=== PATIENT | female | born 1990 | race Caucasian/White ===

== ENCOUNTER → 2018-11-07 | Outpatient (CLI) | payer OTHER, SELFPAY ==
[2018-11-07 12:16] LABS: D-Dimer Quantitative (DVT/PE) 0.41 FEU/ug/m (0.27-0.49)
== END | disposition home or self-care (01) ==
PROVIDERS: Family Provider Family Medicine; PCP Family Medicine; Visit Provider Family Medicine
DX: R07.9 Chest pain, unspecified (principal); R00.2 Palpitations
CPT/HCPCS: 85379; 93225; 93226

== ENCOUNTER 2019-12-01 21:11 | Inpatient (IN) | payer OTHER, SELFPAY ==
[2019-12-01 20:27] VITALS: BMI 37.5
[2019-12-01 20:47] VITALS: BP 141/86; PULSE 88; TEMP 36.3; O2SAT 98
[2019-12-01 20:48] VITALS: PULSE 91; O2SAT 98
[2019-12-01 21:10] LABS: ROM Internal Control Test YES-OK TO RESULT pt. (Internal QC)
[2019-12-01 21:11] LABS: ROM Patient Test POSITIVE (Negative)
[2019-12-01] MEDS: Lactated Ringers 1,000 ML 50 ML IV (21:48)
[2019-12-01] MEDS: Betamethasone/Betamethasone 30 MG/5 ML Vial 12 MG IM (22:01)
[2019-12-01 22:11] LABS: Absolute Lymphocyte Count 1.51 X10^3/uL (0.83-4.51); Absolute Neutrophil Count 5.7 X10^3/uL (2.0-7.7); Basophil# 0.03 X10^3/uL; Basophil% 0.4 % (0-1); Eosinophil# 0.09 X10^3/uL; Eosinophils% 1.1 % (0-5); Hematocrit 32.6 % (37-47); Hemoglobin 10.7 g/dL (12.0-15.0); Lymphocyte # 1.51 X10^3/ul (4.0); Lymphocyte % 18.8 % (19-41); Mean Corp Hgb Conc 32.8 g/dL (32-36); Mean Corpuscular Hgb 28.9 pg (27.0-32.0); Mean Corpuscular Volume 88.1 fL (81-99); Mean Platelet Vol. 9.8 fl (6.2-12.0); Monocyte# 0.63 X10^3/uL; Monocyte% 7.8 % (0-10); NRBC Flagged by Analyzer 0 % (0-5); Neutrophil # 5.68 X10^3/uL (2.7-7.7); Neutrophil % 70.8 % (47-70); Platelet Count 254 K/mm3 (150-450); RBC Distribution Width CV 13.1 % (11.6-14.6)
[2019-12-01 22:48] VITALS: BP 139/82; PULSE 82; PULSE 90; TEMP 36.8; O2SAT 100
[2019-12-01 23:13] LABS: Group B Strep DNA By PCR Negative (Negative); Internal Control PASS; Probe Check PASS; Specimen Processing Control PASS
[2019-12-01 23:46] VITALS: BP 120/76; PULSE 74; PULSE 85; TEMP 36.4; O2SAT 100
[2019-12-02] VITALS (20 sets, daily range): BP systolic 118–161; BP diastolic 60–96; PULSE 70–106; RESP 16; TEMP 36.1–36.9; O2SAT 97–100
[2019-12-02] MEDS: Acetaminophen 325 MG Tablet PO (00:08)
[2019-12-02] MEDS: 0.9% Saline Lock 10 ML Syringe IV (00:10)
[2019-12-02] MEDS: Oxytocin 30 units/NS 500 ml 30 UNITS/500 ML IV.SOLN IV (00:13)
--- NOTE | 2019-12-02 03:43 | PCM.HP.OB ---
History Date of Admission: 12/01/19 Final CLOVIS: 12/28/19 Gestational age: 36 Weeks and 1 Days History of this : This is a 28 year-old, G 4, P 0, at 36 1/7 weeks gestational age who had her cervical cerclage removed today is admitted for spontaneous rupture membranes. She arrived to labor and delivery the leaking of fluid. Her ROM plus test was found to be positive. She was having some irregular contractions. is complicated today by history of infertility, history of recurrent first trimester miscarriages, she had a short cervix in the second trimester at 19 weeks and had a cervical cerclage placed. That cerclage was removed without incident in the office today. She denies any gross vaginal bleeding. Regnancy is also complicated to date by nausea and vomiting in the first trimester, bleeding in the first trimester, and obesity of . BMI is 37. Allergies No Known Allergies Allergy (Verified 12/01/19 20:38) Home Medications: Home Medications Aspirin [Aspirin EC] 81 mg PO DAILY 12/01/19 Ferrous Sulfate 325 mg PO BID 12/01/19 Labetalol [Trandate] 100 mg PO BID 12/01/19 Vits [Prenatabs FA] 1 tab PO DAILY 12/01/19 Progesterone 200 mg RECTAL DAILY 12/01/19 Smoking Status: Former smoker Alcohol: None Number of Fetus(es): 1 NST - FHR Rate Baby A Baseline: normal Variability:: Moderate Accelerations:: 15 x 15 FHR Category:: Category I Uterine Activity:: irreg ctxs History Past Pregnancies: Past Pregnancies Delivery Date Name GA/ Weeks Outcome Route Wt Infant Sex Labor Length Anesthesia Delivery Location Provider FOB Expected Infant Delivery Method: Spontaneous Vaginal Review of Systems Constitutional: Denies: Chills, Fever Eyes: Denies: Blurred vision Cardiovascular: Denies: Chest Pain Respiratory: Denies: Cough Genitourinary: Denies: Dysuria Skin: Denies: Rash Neurological: Denies: Blurred vision Physical Exam Vitals: Vital Signs Temp Pulse BP Pulse Ox 97.5 F L 94 127/71 H 97 12/02/19 02:57 12/02/19 02:57 12/02/19 02:57 12/02/19 02:57 General: Alert, Cooperative, No apparent distress Cardiovascular: Regular rate Lungs: Normal air movement Abdomen: Soft, Non Tender, Non-Distended, Gravid Neurological: Cranial nerves II-XII grossly intact Assessment/Plan This is a 28 year-old, avid a 4 para 0 at 36-1/7 weeks gestation upon admission with premature rupture of membranes. Rapid group B strep is done. Was negative, group B strep prophylaxis is not indicated. Admit for expectant management for vaginal delivery. This is clinically adequate to expect vaginal delivery based on previous pelvic exams. Pitocin induction of labor. May have epidural as needed for pain control.
[2019-12-02] MEDS: Oxytocin 10 UNITS/ML Vial IM (08:13)
[2019-12-02] MEDS: Ketorolac 30 MG/ML Syringe IM (08:15)
[2019-12-02] MEDS: Oxytocin 30 units/NS 500 ml 30 UNITS/500 ML IV.SOLN 167 UNITS IV (09:00)
[2019-12-02] MEDS: Cefazolin 2 GM in 0.9% Normal Saline 100 ML IV (09:41)
--- NOTE | 2019-12-02 10:47 | OP.PCM_ITS ---
Report of Operation Date of Procedure: 12/02/19 Pre-Operative Diagnosis: Cervical & vaginal lacerations Post-Operative Diagnosis: Same Surgery/Procedure Performed:: Repair of cervical & vaginal lacerations Description of Surgical Findings:: Posterior cervical laceration. Also right sided vaginal lacerations near cervix. highway maintenance technician: Idania aCmp Type of Anesthesia:: Spinal Drains: straigh cath (75ml) Estimated Blood Loss (mL): 100ml Fluids Replaced: 400ml Description of Procedure: Patient counseled on R/B/A and decision made to proceed with cervical laceration (and additional vaginal laceration) repair under spinal anesthesia in the OR. Spinal anesthesia was placed once patient in the OR. She was placed in the dorsal lithotomy position, prepped & draped. Cervix was grasped with ring forceps and lalo clamps. Cervical laceration repaired with both running & interrupted 3-0 vicryl. Additional vaginal lacerations not repaired with 3-0 vicryl. Excellent hemostasis was noted of all lacerations. At end of procedure all instruments were removed from the vaginal cavity. Sponge, lap & needle counts were correct times 2. Vaginal sweep was performed. Patient tolerated the procedure well. - Complications None - Admit VTE Documentation VTE Present on Admission: No Vaginal Delivery Maternal Presentation: Spontaneous Rupture of Membranes Method of Induction: Pitocin Amniotic Membrane Rupture Type: Spontaneous at home Amniotic Fluid Description: Clear Final CLOVIS: 12/28/19 Gestational age: 36 Weeks and 2 Days Date of Procedure: 12/02/19 Pre-Operative Diagnosis: (1) PPROM Post-Operative Diagnosis: (1) PPROM (2) Cervical laceration Surgery/ Procedure Performed: Spontaneous Vaginal Delivery Type of Anesthesia: Local with 1% lidocaine Description of Procedure: Patient prepped & draped in stirrups when C/C/+2. She pushed to deliver the head. Shoulders and body easily followed. Infant placed on maternal abdomen where 3VC clamped and cut in delayed fashion. Placenta delivered with gentle traction. Good uterine tone obtained. Vaginal lacerations noted and repair begain with 3-0 vicryl and injecting lidocaine. Some increased bleeding noted again and cervix examined. Posterior cervical laceration noted and decision made to take patient to the OR for repair under spinal anesthesia. Presentation: ELSIE Placental Delivery Description: Expressed Placenta Disposition: [facility] Cord Vessel Description: 3 Vessels Cord Entanglement: None Estimated Blood Loss: 600ml A gender: Male - Harmon; weight 6-4 (1 minute): 9 (5 minute): 9 Episiotomy Description: None Laceration: Vaginal Extension/lac - See other operative note for repair information, Cervical Extension/lac Medications given after delivery: IV Pitocin - IM pitocin only as IV not working
[2019-12-02 18:23] LABS: Absolute Neutrophil Count 11.4 X10^3/uL (2.0-7.7); Basophil# 0.01 X10^3/uL; Basophil% 0.1 % (0-1); Hematocrit 29.4 % (37-47); Hemoglobin 9.8 g/dL (12.0-15.0); Lymphocyte % 8.6 % (19-41); Mean Corp Hgb Conc 33.3 g/dL (32-36); Mean Corpuscular Hgb 29.3 pg (27.0-32.0); Mean Platelet Vol. 10.1 fl (6.2-12.0); Monocyte# 1.23 X10^3/uL; Monocyte% 8.8 % (0-10); NRBC Flagged by Analyzer 0 % (0-5); Neutrophil # 11.41 X10^3/uL (2.7-7.7); Neutrophil % 81.4 % (47-70); Platelet Count 307 K/mm3 (150-450); RBC Distribution Width SD 41.5 fl (35.1-43.9); Red Blood Count 3.34 M/mm3 (4.2-5.4)
[2019-12-02] MEDS: Ibuprofen 600 MG Tablet PO (20:44)
[2019-12-02] MEDS: Acetaminophen 500 MG Tablet 1000 MG PO (22:33)
[2019-12-02] MEDS: Senna/Docusate Sodium 1 Tablet PO (22:34)
[2019-12-03 00:25] VITALS: BP 112/47; PULSE 83; RESP 14; TEMP 36.7; O2SAT 97
[2019-12-03] MEDS: oxyCODONE 5 MG Tablet PO (01:44)
[2019-12-03] MEDS: Ibuprofen 600 MG Tablet PO ×3 (03:23→15:54)
[2019-12-03 03:32] VITALS: BP 129/79; PULSE 71; RESP 16; TEMP 36.1; O2SAT 97
--- NOTE | 2019-12-03 07:24 | PCM.PN.OB ---
Subjective: Pain controlled - Physical Exam Vitals/I&O's: Vital Signs Temp Pulse Resp BP Pulse Ox 97 F L 71 16 129/79 H 97 12/03/19 03:32 12/03/19 03:32 12/03/19 03:32 12/03/19 03:32 12/03/19 03:32 Oxygen Delivery Method Room Air Weight: 232 lb 12.93 oz Body Mass Index (BMI) 37.5 Intake and Output for Last 24 Hours 12/01/19 12/02/19 12/03/19 23:59 23:59 23:59 Intake Total 18.33 / 18.33 2724.67 / 2724.67 Output Total 1150 / 1150 Balance 18.33 / 18.33 1574.67 / 1574.67 General: Alert, Oriented x3 Abdomen: Soft, Non Tender, Non-Distended - ff mid & below umb Extremities: No Calf Tenderness Laboratory Results 12/02/19 18:05: WBC 14.0 H, RBC 3.34 L, Hgb 9.8 L, Hct 29.4 L, MCV 88.0, MCH 29.3, MCHC 33.3, RDW Std Deviation 41.5, RDW Coeff of Jennifer 13.0, Plt Count 307, MPV 10.1, Immature Gran % (Auto) 1.100 H, Neut % (Auto) 81.4 H, Lymph % (Auto) 8.6 L, [place] % (Auto) 8.8, Eos % (Auto) 0.0, Baso % (Auto) 0.1, Absolute Neuts (auto) 11.4 H, Absolute Lymphs (auto) 1.20, Nucleated RBC % 0 Current Medications Acetaminophen (Tylenol) 1,000 mg PO Q8H PRN PRN PRN Reason: Pain Score 1-3/10 Last Admin: 12/02/19 22:33 Dose: 1,000 mg Documented by: Bisacodyl (Dulcolax) 10 mg RECTAL UD PRN PRN Reason: If no BM Dibucaine (Dibucaine) 1 applic TOPICAL TID PRN PRN; Protocol PRN Reason: Discomfort Hydrocortisone (Hytone) 1 applic TOPICAL TID PRN PRN; Protocol PRN Reason: Discomfort Ibuprofen (Motrin) 600 mg PO Q6H PRN PRN PRN Reason: Pain Score 1-3/10 Last Admin: 12/03/19 03:23 Dose: 600 mg Documented by: Methylergonovine Maleate (Methergine) 0.2 mg IM X1 PRN PRN Reason: Excess bleeding/uterine atony Ondansetron HCl (Zofran) 4 mg IV Q4H PRN PRN PRN Reason: Nausea Oxycodone HCl (Oxyir) 5 - 10 mg PO Q4H PRN PRN PRN Reason: Pain Score 4-10/10 Last Admin: 12/03/19 01:44 Dose: 5 mg Documented by: Multivit/Folic Acid/Iron (Prenatabs Fa) tablet PO DAILY JERE Prochlorperazine Edisylate (Compazine Iv) 10 mg IV Q6H PRN PRN PRN Reason: NAUSEA/VOMITING Senna/Docusate Sodium (Senokot-S, Kasandra-Colace) 1 - 2 tablet PO DAILY PRN PRN PRN Reason: Constipation Last Admin: 12/02/19 22:34 Dose: 1 tablet Documented by: Simethicone (Mylicon) 80 mg PO PCHS PRN PRN Reason: Indigestion/Stomach pain Sodium Chloride () 5 - 15 ml IV UD PRN PRN Reason: SALINE FLUSH Medical Necessity - Tobacco Use Smoking Status: Former smoker Assessment/Plan PPD#1 Heme - HDS, cbc reviewed Chtn - BP normal, off labetalol Routine care and plan for discharge tomorrow
[2019-12-03 07:45] VITALS: BP 106/56; PULSE 78; RESP 16; TEMP 36.3
[2019-12-03] MEDS: Prenatal Vits Tablet 1 TABLET PO (11:38)
[2019-12-03] MEDS: Acetaminophen 500 MG Tablet 1000 MG PO ×2 (11:39→19:44)
[2019-12-03] MEDS: Senna/Docusate Sodium 1 Tablet PO (11:42)
[2019-12-03 13:32] VITALS: BP 115/77; PULSE 75; RESP 16; TEMP 36.5
[2019-12-03 19:30] VITALS: BP 122/86; PULSE 86; RESP 16; TEMP 36.5
[2019-12-03] MEDS: Dibucaine 30 GM Tube 1 APPLIC TOPICAL (19:45)
[2019-12-04] MEDS: oxyCODONE 5 MG Tablet PO ×2 (01:08→08:28)
[2019-12-04 01:14] VITALS: BP 120/69; PULSE 77; RESP 16; TEMP 36.3; O2SAT 97
[2019-12-04] MEDS: Ibuprofen 600 MG Tablet PO (04:25)
[2019-12-04 08:00] VITALS: BP 137/90; PULSE 76; RESP 16; TEMP 36.6; O2SAT 98
--- NOTE | 2019-12-04 08:25 | PCM.PN.OB ---
Subjective: Patient seen at bedside. going well. Pain controlled with Motrin and Tylenol during the day and Oxy-ir at night. Ambulating in room and voiding without difficulty. Lochia decreasing. Desires discharge home today. - Physical Exam Vitals/I&O's: Vital Signs Temp Pulse Resp BP Pulse Ox 97.4 F L 77 16 120/69 97 12/04/19 01:14 12/04/19 01:14 12/04/19 01:14 12/04/19 01:14 12/04/19 01:14 Oxygen Delivery Method Room Air Weight: 232 lb 12.93 oz Body Mass Index (BMI) 37.5 Intake and Output for Last 24 Hours 12/02/19 12/03/19 12/04/19 23:59 23:59 23:59 Intake Total 2724.67 / 2724.67 Output Total 1150 / 1150 Balance 1574.67 / 1574.67 General: Oriented x3 HEENT: Atraumatic Lungs: Normal air movement Cardiovascular: Regular rate Abdomen: Soft, Non Tender, Passing Flatus Extremities: No Calf Tenderness Skin: No rashes Neurological: Cranial nerves II-XII grossly intact Psych/Mental Status: Normal Affect, Appropriate Current Medications Acetaminophen (Tylenol) 1,000 mg PO Q8H PRN PRN PRN Reason: Pain Score 1-3/10 Last Admin: 12/03/19 19:44 Dose: 1,000 mg Documented by: Bisacodyl (Dulcolax) 10 mg RECTAL UD PRN PRN Reason: If no BM Dibucaine (Dibucaine) 1 applic TOPICAL TID PRN PRN; Protocol PRN Reason: Discomfort Last Admin: 12/03/19 19:45 Dose: 1 applic Documented by: Hydrocortisone (Hytone) 1 applic TOPICAL TID PRN PRN; Protocol PRN Reason: Discomfort Ibuprofen (Motrin) 600 mg PO Q6H PRN PRN PRN Reason: Pain Score 1-3/10 Last Admin: 12/04/19 04:25 Dose: 600 mg Documented by: Methylergonovine Maleate (Methergine) 0.2 mg IM X1 PRN PRN Reason: Excess bleeding/uterine atony Ondansetron HCl (Zofran) 4 mg IV Q4H PRN PRN PRN Reason: Nausea Oxycodone HCl (Oxyir) 5 - 10 mg PO Q4H PRN PRN PRN Reason: Pain Score 4-10/10 Last Admin: 12/04/19 01:08 Dose: 5 mg Documented by: Multivit/Folic Acid/Iron (Prenatabs Fa) 1 tablet PO DAILY@1200 JERE Last Admin: 12/03/19 11:38 Dose: 1 tablet Documented by: Prochlorperazine Edisylate (Compazine Iv) 10 mg IV Q6H PRN PRN PRN Reason: NAUSEA/VOMITING Senna/Docusate Sodium (Senokot-S, Kasandra-Colace) 1 - 2 tablet PO DAILY PRN PRN PRN Reason: Constipation Last Admin: 12/03/19 11:42 Dose: 2 tablet Documented by: Simethicone (Mylicon) 80 mg PO PCHS PRN PRN Reason: Indigestion/Stomach pain Sodium Chloride () 5 - 15 ml IV UD PRN PRN Reason: SALINE FLUSH Throat Lozenges (Dermoplast (Sp)) 1 applic TOPICAL 4X/DAY PRN PRN; Protocol PRN Reason: Pain/Inflammation Last Admin: 12/03/19 23:58 Dose: 1 applic Documented by: Medical Necessity - Tobacco Use Smoking Status: Former smoker Assessment/Plan PPD #2 Routine care Pain management Discharge home and will follow up in 2 weeks
[2019-12-04] MEDS: Senna/Docusate Sodium 1 Tablet PO (08:28)
--- NOTE | 2019-12-04 08:29 | DCINST_ITS ---
Discharge Diet: No Restrictions Discharge Activity: Return to Normal Activity May resume sexual activity in: 6-8 weeks Weight Bearing Status: Weight bearing as tolerated Additional Instructions: If you experience any of the following, contact your healthcare provider. * Bleeding that soaks a pad every hour for 2 hours * Fever 100.4 or higher * Unrelieved incision or abdominal pain * Swelling, redness, discharge or bleeding from your incision or episiotomy site * Your incision begins to separate * Problems urinating (including inability to urinate or burning while urinating). * Visual changes * Severe headache * Flu-like symptoms * Pain or redness in one of both of your breasts * Pain, warmth, tenderness or swelling in your legs, especially the calf area * Frequent nausea and vomiting * Symptoms of depression or anxiety If you experience any of the following, call 911 or go to the nearest Emergency Room. * Chest pain * Problems breathing * Seizure activity * Partial or complete paralysis of a body part, slurred speech, weakness or drooping of the face, or a sudden inability to walk or hold your balance Allergies/Adverse Reactions: Allergies No Known Allergies Allergy (Verified 12/01/19 20:38) Please Follow Up With: Magaly Kaba MD When: 2 weeks virtual visit/ 6 weeks in office Primary Care Physician: Joaquim Ovalle MD [Primary Care Provider] - Test Results: Test results from this visit will be discussed in further detail at your follow- up appointment, if applicable.
--- NOTE | 2019-12-04 08:29 | PCM.DCVAG ---
Discharge Diet: No Restrictions Discharge Activity: Return to Normal Activity May resume sexual activity in: 6-8 weeks Weight Bearing Status: Weight bearing as tolerated Additional Instructions: If you experience any of the following, contact your healthcare provider. Bleeding that soaks a pad every hour for 2 hours Fever 100.4 or higher Unrelieved incision or abdominal pain Swelling, redness, discharge or bleeding from your incision or episiotomy site Your incision begins to separate Problems urinating (including inability to urinate or burning while urinating). Visual changes Severe headache Flu-like symptoms Pain or redness in one of both of your breasts Pain, warmth, tenderness or swelling in your legs, especially the calf area Frequent nausea and vomiting Symptoms of depression or anxiety If you experience any of the following, call 911 or go to the nearest Emergency Room. Chest pain Problems breathing Seizure activity Partial or complete paralysis of a body part, slurred speech, weakness or drooping of the face, or a sudden inability to walk or hold your balance Allergies/Adverse Reactions: Allergies No Known Allergies Allergy (Verified 12/01/19 20:38) Please Follow Up With: Magaly Kaba MD When: 2 weeks virtual visit/ 6 weeks in office Primary Care Physician: Joaquim Ovalle MD [Primary Care Provider] - Test Results: Test results from this visit will be discussed in further detail at your follow-up appointment, if applicable.
--- NOTE | 2019-12-04 09:49 | NURSING ---
faiza in for consult. pt nursing baby with shield at this time. appt for repeat bili vivek and appt made
[2019-12-04 10:00] VITALS: BP 137/90; PULSE 76; RESP 16; TEMP 36.4; O2SAT 98
== END 2019-12-04 11:45 | disposition home or self-care (01) | DRG 768 ==
LOC: WPOUT 21:15 → WP 12-02 07:27
PROVIDERS: Admitting Provider Obstetrics & Gynecology; PCP Family Medicine; Visit Provider Obstetrics & Gynecology
DX: O60.14X0 Preterm labor third trimester with preterm delivery third trimester, not applicable or unspecified (principal); O71.3 Obstetric laceration of cervix; O71.4 Obstetric high vaginal laceration alone; O42.913 Preterm premature rupture of membranes, unspecified as to length of time between rupture and onset of labor, third trimester; O99.214 Obesity complicating childbirth; E66.9 Obesity, unspecified; Z79.82 Long term (current) use of aspirin; Z87.891 Personal history of nicotine dependence; Z3A.36 36 weeks gestation of pregnancy; Z37.0 Single live birth
CPT/HCPCS: 59025; 59050; 84112; 85025; 86850; 86900; 86901; 87081; 87635; 87653; 99218; G2023; J7120; A4216; G0378; J0702; U0003

== ENCOUNTER 2022-05-22 09:49 | Emergency (ER) | payer BC, SELFPAY ==
[2022-05-22 09:51] VITALS: BP 169/102; PULSE 90; RESP 17; TEMP 37.2; O2SAT 100; BMI 83.1
--- NOTE | 2022-05-22 10:19 | EX.ED.DYSGE1 ---
HPI History of Present Illness Chief Complaint: Flank Pain Informant: patient Onset/Context/Timing Onset: Days (4) Context: Gradual Onset Timing: Waxes and wanes Quality: Dull, sharp at times Location: Right flank and right lower quadrant Worsened by: Movement Relieved by: Nothing Narrative Narrative: Presents with right flank pain that began 4 days ago. Patient states it has been waxing and waning over that time. Patient states it became worse this morning. Patient describes her pain as dull. Patient states it does get sharp at times. Patient states it is over the right flank and radiates into the right lower abdomen. Patient thinks it is worse with movement. Patient states nothing makes it better. Patient denies any nausea or vomiting. Patient denies any dysuria or hematuria. Patient denies any fevers or chills. [facility] Medical History Hypertension PCOS (polycystic ovarian syndrome) Home Medications hydrocodone-acetaminophen 5-325mg 5mg-325mg 1 tab PO Q6H PRN PRN Pain 3 days #10 TABLETS 05/22/22 [Rx Last Taken Unknown] labetalol 200 mg tablet 200 mg PO BID 05/22/22 [History Last Taken Unknown] sulfamethoxazole 800 mg-trimethoprim 160 mg tablet 1 tab PO BID #6 TABLETS 05/22/22 [Rx Last Taken Unknown] Allergy/AdvReac Type Severity Reaction Status Date / Time No Known Allergies Allergy Verified 05/22/22 09:50 Social History Smoking Status: Former smoker ROS ROS ED Constitutional Constitutional ED: Denies chills or fever(s) Eyes Eyes: Denies blurry vision or change in vision ENT ENT ED: Denies rhinorrhea or sore throat Cardiovascular Cardiovascular: Denies chest pain or palpitations Respiratory/Chest Respiratory/Chest: Denies cough or dyspnea Gastrointestinal Gastrointestinal: Reports abdominal pain; Denies nausea or vomiting Genitourinary Genitourinary ED: Denies dysuria or hematuria Musculoskeletal Musculoskeletal: Reports back pain; Denies neck pain Integumentary Denies abscess or rash Neurologic Neurologic: Denies headache(s) or weakness Allergic/Immunologic Allergic/Immunologic ED: Denies mouth swelling or urticaria EXAM Physical Exam Const Vital Signs: 05/22/22 09:51 Temperature 98.9 F Temperature Source Temporal Pulse Rate 90 Respiratory Rate 17 Blood Pressure 169/102 H Blood Pressure Mean 124 Pulse Ox 100 Oxygen Delivery Method Room Air Positive well nourished, well developed and obese General Appearance ED: well developed and NAD Nutritional Appearance: obese HEENT Reports moist mucous membranes Neck supple and no JVD Resp normal respiratory effort and clear to auscultation bilaterally Cardio regular rate and regular rhythm GI normal to inspection, nondistended, normoactive bowel sounds and non-distended Palpation: soft and tender RLQ; Negative for guarding or rebound tenderness present Back/Spine General Back: CVA tenderness right Neuro oriented x3, CN's II-XII intact bilaterally and no sensory deficits noted Sensorium / Orientation: alert Motor Exam: strength 5/5 throughout Psych mental status grossly normal Skin no rashes or lesions noted MDM MDM MDM Narrative Medical decision making narrative: Patient was given IV fluids, morphine, and Zofran. Patient was still having pain after this. Patient was given a dose of Toradol. CBC was within normal limits. Comprehensive metabolic profile was within normal limits. Serum hCG was negative. Urinalysis shows a leukocyte esterases of 500 with 25-50 white blood cells. There were 10-25 epithelial cells and 3+ bacteria. Urine culture was ordered. CT scan of the abdomen pelvis was obtained. There is questionable sludge or small stones in the gallbladder lumen. There is no evidence of cholecystitis. This was interpreted by the radiologist and reviewed by myself. On reevaluation, patient has no tenderness in the right upper quadrant. There is negative Davila sign. Patient was advised of her findings. Patient was given a dose of Bactrim here. Patient was given a prescription for Bactrim. Patient was given a prescription for a short course of Lyndon. Patient was instructed to drink plenty of fluids. Patient was instructed to follow-up with her primary care physician in 5 to 7 days. Patient understood and was agreeable with plan. All questions were answered. Lab Data Labs: Laboratory Results - last 24 hr 05/22/22 05/22/22 05/22/22 10:00 10:00 10:00 WBC 5.6 RBC 4.78 Hgb 13.5 Hct 41.0 MCV 85.8 MCH 28.2 MCHC 32.9 RDW Std Deviation 38.6 RDW Coeff of Jennifer 12.2 Plt Count 340 MPV 10.1 Immature Gran % (Auto) 0.200 Neut % (Auto) 65.8 Lymph % (Auto) 23.5 [place] % (Auto) 8.4 Eos % (Auto) 1.4 Baso % (Auto) 0.7 Absolute Neuts (auto) 3.7 Absolute Lymphs (auto) 1.32 Nucleated RBC % 0 Sodium 137 Potassium 4.0 Chloride 105 Carbon Dioxide 26.0 Anion Gap 6 BUN 11 Creatinine 0.88 Estim Creat Clear Calc 85.12 Est GFR (MDRD) Af Amer 95 Est GFR (MDRD) Non-Af 79 BUN/Creatinine Ratio 12.6 Glucose 93 Calcium 9.3 Total Bilirubin 0.60 AST 18 ALT 27 Alkaline Phosphatase 44 L Total Protein 7.9 Albumin 4.0 Globulin 3.9 Albumin/Globulin Ratio 1.0 Lipase 152 Serum , Qual NEGATIVE Urine Color Urine Clarity Urine pH Ur Specific [place] Urine Protein Urine Glucose (UA) Urine Ketones Urine Occult Blood Urine Nitrite Urine Bilirubin Urine Urobilinogen Ur Leukocyte Esterase Urine RBC Urine WBC Ur Squamous Epith Cells Urine Bacteria Urine Mucus 05/22/22 10:30 WBC RBC Hgb Hct MCV MCH MCHC RDW Std Deviation RDW Coeff of Jennifer Plt Count MPV Immature Gran % (Auto) Neut % (Auto) Lymph % (Auto) [place] % (Auto) Eos % (Auto) Baso % (Auto) Absolute Neuts (auto) Absolute Lymphs (auto) Nucleated RBC % Sodium Potassium Chloride Carbon Dioxide Anion Gap BUN Creatinine Estim Creat Clear Calc Est GFR (MDRD) Af Amer Est GFR (MDRD) Non-Af BUN/Creatinine Ratio Glucose Calcium Total Bilirubin AST ALT Alkaline Phosphatase Total Protein Albumin Globulin Albumin/Globulin Ratio Lipase Serum , Qual Urine Color Yellow Urine Clarity Cloudy Urine pH 8.0 Ur Specific [place] 1.010 Urine Protein 100 H Urine Glucose (UA) Normal Urine Ketones 5 H Urine Occult Blood 10 H Urine Nitrite Negative Urine Bilirubin Negative Urine Urobilinogen Normal Ur Leukocyte Esterase 500 H Urine RBC 0 SEEN Urine WBC 25-50 SEEN Ur Squamous Epith Cells 10-25 SEEN Urine Bacteria 3+ Urine Mucus 0 SEEN Radiography Diagnostic Testing: Clinical Impression(s) from Imaging Studies Abdomen/Pelvis CT 05/22/22 10:23 IMPRESSION: Questionable sludge or small gallstones in the gallbladder lumen. Electronically Signed: Alex Figueroa MD at 11:26 EST , Discharge Plan Triage Chief Complaint: Flank Pain ED Provider: Mir Cruz Dx/Rx/DC Orders Clinical Impression: Urinary tract infection, Right flank pain Instructions: ED Flank Pain, Uncertain Cause, ED Cystitis Female Adult Prescriptions: New hydrocodone-acetaminophen [hydrocodone-acetaminophen] 1 TABLET tablet 1 tab PO Q6H PRN PRN (Reason: Pain) 3 Days Qty: 10 0RF sulfamethoxazole-trimethoprim [sulfamethoxazole-trimethoprim] 1 TABLET tablet 1 tab PO BID Qty: 6 0RF No Action labetalol 200 mg tablet 200 mg PO BID Label Comments: TAKE 1 TABLET BY MOUTH TWICE DAILY Primary Care Provider: Joaquim Ovalle Referrals: Joaquim Ovalle MD [Primary Care Provider] - 3-5 Days Disposition Disposition: Home, Self Care
--- NOTE | 2022-05-22 10:23 | CT_ITS ---
STUDY: CT ABDOMEN AND PELVIS WITHOUT CONTRAST REASON FOR EXAM: Female, 31 years old. Right flank pain RADIATION DOSAGE (If Supplied By Facility): CTDIvol = ( 18.67 ) mGy, DLP = ( 965.72 ) mGycm TECHNIQUE: Transaxial images were obtained from the dome of the diaphragm to the symphysis pubis without oral contrast, and without intravenous contrast. Sagittal and coronal images were reconstructed. Individualized dose optimization techniques were used for this CT. COMPARISON: None. FINDINGS: The visualized lung bases are unremarkable. The visualized portions of the heart are within normal limits. Normal liver. Question of sludge or small gallstones within the gallbladder lumen. Normal spleen. Normal pancreas. Normal bilateral adrenal glands. Normal right kidney. Normal left kidney. Incidental note is made of a left retroaortic renal vein. Normal visualized stomach. Normal small intestine. Normal colon. The appendix is visualized and appears normal. There is scattered atherosclerotic calcification of the abdominal aorta, without a demonstrated aneurysm. Normal inferior vena cava. Normal retroperitoneum. Normal urinary bladder. Normal abdominal wall. Normal osseous structures. CT/Abdomen/Pelvis without Cont IMPRESSION: Questionable sludge or small gallstones in the gallbladder lumen. Electronically Signed: Alex Figueroa MD at 11:26 [facility] ,
[2022-05-22] MEDS: 0.9% Normal Saline 1,000 ML 1000 ML IV (10:29)
[2022-05-22] MEDS: Morphine 4 MG/ML Syringe IV (10:30)
[2022-05-22] MEDS: Ondansetron 4 MG/2 ML Vial IV (10:30)
[2022-05-22 10:32] LABS: Absolute Lymphocyte Count 1.32 X10^3/uL (0.83-4.51); Absolute Neutrophil Count 3.7 X10^3/uL (2.0-7.7); Basophil# 0.04 X10^3/uL; Basophil% 0.7 % (0-1); Eosinophil# 0.08 X10^3/uL; Eosinophils% 1.4 % (0-5); Hemoglobin 13.5 g/dL (12.0-15.0); Lymphocyte # 1.32 X10^3/ul (0.83-4.51); Lymphocyte % 23.5 % (19-41); Mean Corp Hgb Conc 32.9 g/dL (32-36); Mean Corpuscular Hgb 28.2 pg (27.0-32.0); Mean Corpuscular Volume 85.8 fL (81-99); Mean Platelet Vol. 10.1 fl (6.2-12.0); Monocyte# 0.47 X10^3/uL; Monocyte% 8.4 % (0-10); NRBC Flagged by Analyzer 0 % (0-5); Neutrophil % 65.8 % (47-70); Platelet Count 340 K/mm3 (150-450); RBC Distribution Width CV 12.2 % (11.6-14.6); RBC Distribution Width SD 38.6 fl (35.1-43.9); Red Blood Count 4.78 M/mm3 (4.2-5.4); White Blood Count 5.6 K/mm3 (4.4-11.0)
[2022-05-22 10:39] LABS: Mucous, Urine 0 SEEN /hpf (<or=2+); Red Blood Cells-Urine 0 SEEN /hpf (0-5)
[2022-05-22 10:41] LABS: Color, Urine Yellow (Yellow); Glucose, Dipstick Normal (Normal); Ketone-Dipstick 5 mg/dl (Negative); Leukocyte Esterase-Dipstick 500 /ul (Negative); Nitrite-Dipstick Negative (Negative); Occult Blood-Urine 10 /ul (Negative); Protein-Dipstick 100 mg/dl (Negative); Urine Bilirubin Dipstick Negative (Negative); Urine Clarity Cloudy (Clear); Urine Urobilinogen Normal (Normal)
[2022-05-22 10:47] LABS: Internal QC Validated? YES +Cl - CLEAR BKGD; Pregnancy, Serum, hCG Quali. NEGATIVE Negative
[2022-05-22 10:51] LABS: Squamous Epithelial Cells - UA 10-25 SEEN /hpf (5-10)
[2022-05-22 10:52] LABS: White Blood Cells 25-50 SEEN /hpf (0-5)
[2022-05-22 10:53] LABS: Bacteria 3+ /hpf (None Seen)
[2022-05-22 10:53] LABS: AST(SGOT) 18 U/L (15-37); Alanine Aminotransfer ALT/SGPT 27 U/L (13-56); Alkaline Phosphatase 44 U/L (45-117); Anion Gap 6 (5-15); BUN 11 mg/dL (7-18); BUN/Creat Ratio 12.6 RATIO (10-20); Calcium,Total 9.3 mg/dL (8.5-10.1); Chloride 105 mmol/L (98-107); Creatinine, Serum 0.88 mg/dL (0.55-1.02); EST Glomerular Filtration Rate 79 mL/min (>60); Est Glom Filt Rate - Afr Amer 95 mL/min (>60); Estimated Creatinine Clearance 85.12 ml/min; Globulin 3.9 g/dL (2.2-4.2); Glucose 93 mg/dL (74-106); Lipase 152 U/L (73-393); Protein, Total 7.9 g/dL (6.4-8.2); Sodium Level 137 mmol/L (136-145)
[2022-05-22] MEDS: Ketorolac 30 MG/ML Syringe IV (11:01)
[2022-05-22 12:36] VITALS: BP 118/68; PULSE 72; RESP 16; O2SAT 99
== END 2022-05-22 13:10 | disposition home or self-care (01) ==
PROVIDERS: Emergency Provider Emergency Medicine; PCP Family Medicine; Visit Provider Emergency Medicine
DX: N39.0 Urinary tract infection, site not specified (principal); R10.9 Unspecified abdominal pain; I10 Essential (primary) hypertension; E66.9 Obesity, unspecified; Z79.899 Other long term (current) drug therapy; Z87.891 Personal history of nicotine dependence
CPT/HCPCS: 74176; 80053; 81001; 83690; 84703; 85025; 87086; 87088; 96361; 96374; 96375; 99283; A4216; J2405